=== PATIENT | female | born 1935 | race Caucasian/White ===

== ENCOUNTER → 2017-02-20 | Outpatient (CLI) | payer OTHER ==
--- NOTE | 2017-02-20 13:13 | DI ---
XR L-SPINE MIN 4 VW,02/20/2017 12:02 PM: Clinical History: Osteoarthritis of the spine with radiculopathy Previous Exam: None available. Findings: AP, lateral, flexion and extension views are obtained, and demonstrate diffuse osteopenia. Degenerative endplate changes are noted. There is a mild facet arthropathy. A nonobstructive bowel gas pattern is seen. A few vascular calcifications are seen. Impression: Diffuse degenerative changes of the lumbar spine without instability on flexion or extension.
== END ==
LOC: MRI 08:00
PROVIDERS: ATTEND Physician Assistant
DX: M47.26 Other spondylosis with radiculopathy, lumbar region (principal)
CPT/HCPCS: 72110

== ENCOUNTER → 2017-02-20 | Outpatient (CLI) | payer OTHER ==
--- NOTE | 2017-02-20 11:33 | DI ---
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 Previous Exam: None at this facility. Findings: Multiplanar MR images are obtained through the lumbar spine without contrast, and demonstrate anatomi c alignment without fractures. Vertebral body height is preserved. Intervertebral disc height is also preserved. The spinal cord descends normally with normal course, caliber and signal characteristics. The conus i s seen at the L2 level. There is facet arthropathy noted. There is disc desiccation and broad-based disc bulges throughout. Visualized portions of the kidneys are unremarkable. Individual intervertebral disc spaces: L1/2: No significant stenosis. L2/3: There is a broad-based disc bulge with some facet and ligamentum flavum hypertrophy contributin g to mild central canal stenosis and mild bilateral neural foraminal narrowing. L3/4: There is a broad-based disc bulge with some annular fissuring and facet and ligamentum flavum h ypertrophy contributing to moderate right lateral recess stenosis and mild left neuroforaminal narrow ing. L4/5: There is disc desiccation and a broad-based disc bulge with facet and ligamentum flavum hypertr ophy contributing to moderate central canal stenosis with severe bilateral neural foraminal narrowing . L5/S1: There is disc desiccation, annular fissuring and a broad-based disc bulge with facet and ligam entum flavum hypertrophy contributing to severe left and moderate right neuroforaminal narrowing. Impression: L2/3: There is a broad-based disc bulge with some facet and ligamentum flavum hypertrophy contributin g to mild central canal stenosis and mild bilateral neural foraminal narrowing. L3/4: There is a broad-based disc bulge with some annular fissuring and facet and ligamentum flavum h ypertrophy contributing to moderate right lateral recess stenosis and mild left neuroforaminal narrow ing. L4/5: There is disc desiccation and a broad-based disc bulge with facet and ligamentum flavum hypertr ophy contributing to moderate central canal stenosis with severe bilateral neural foraminal narrowing . L5/S1: There is disc desiccation, annular fissuring and a broad-based disc bulge with facet and ligam entum flavum hypertrophy contributing to severe left and moderate right neuroforaminal narrowing.
== END ==
LOC: MRI 08:00
PROVIDERS: ATTEND Physician Assistant
DX: M47.26 Other spondylosis with radiculopathy, lumbar region (principal); M47.816 Spondylosis without myelopathy or radiculopathy, lumbar region; M51.16 Intervertebral disc disorders with radiculopathy, lumbar region; M51.17 Intervertebral disc disorders with radiculopathy, lumbosacral region
CPT/HCPCS: 72148

== ENCOUNTER → 2017-03-14 | Outpatient (CLI) | payer OTHER ==
--- NOTE | 2017-03-14 10:05 | DI ---
RIGHT SHOULDER, 03/14/2017 9:18 AM: Clinical History: Acute right shoulder pain. Previous Exam: None at this facility. 3 views are submitted. There is no acute soft tissue, osseous, or joint abnormality. There are calcif ications in proximity to the greater tuberosity consistent with calcific tendinitis of the rotator cu ff. Mild arthrosis is present in the AC joint. There is osteoporosis. There is no mass in the apex or the remaining visualized portions of the right lung, but the right infrahilar region does appear pro minent. A routine PA and lateral chest x-ray is recommended for followup. Readin. Calcific tendinitis of the rotator cuff, probably in the supraspinatus tendon. 2. Osteoporosis. Arthrosis of the AC joint. 3. Prominent appearance of the right infrahilar region and a followup chest x-ray is recommended.
== END ==
LOC: MOB RAD 09:23
PROVIDERS: ATTEND Physician Assistant
DX: M25.511 Pain in right shoulder (principal); M75.41 Impingement syndrome of right shoulder; M75.31 Calcific tendinitis of right shoulder; M19.011 Primary osteoarthritis, right shoulder; M51.16 Intervertebral disc disorders with radiculopathy, lumbar region
CPT/HCPCS: 20610 ×2; 73030; 99213; G0463; J0702

== ENCOUNTER → 2017-06-14 | Outpatient (CLI) | payer OTHER | LOC: MMPC 10:00 | PROVIDERS: ATTEND Physician Assistant | DX: M75.41 Impingement syndrome of right shoulder (principal); M19.011 Primary osteoarthritis, right shoulder; M51.16 Intervertebral disc disorders with radiculopathy, lumbar region; M47.817 Spondylosis without myelopathy or radiculopathy, lumbosacral region | CPT/HCPCS: 20610 ×2; 99213; G0463; J0702 ==

== ENCOUNTER 2019-08-14 08:01 | Observation (INO) ==
[~2019-08-14 08:01] MED LIST: LIDOCAINE W/ SODIUM BICARB 0.5 ML SYR ONE; LIDOCAINE W/ SODIUM BICARB 0.5 ML SYR SUBD ONE; Lactated Ringers 1,000 ML PRIMARY IV ONE; Nasal Sanitizer POPSWAB ampule 3 AMP (Nozin) PREOP DOSE ENOS SCH; Sodium Chloride 0.9% 0 ML ONE; Sodium Chloride 0.9% 250 ML ONE; Vancomycin Inj 1gm vial ONE; Vancomycin-PHA to Dose IV PRN; ceFAZolin Inj 2gm (Premix) 2 GM/50 ML BAG IV ONE
[2019-08-14] MEDS ORDERED: MIDAZOLAM HCL 2 MG/2 ML VIAL ONE (10:23)
[2019-08-14] MEDS ORDERED: fentaNYL Inj 100 MCG/2 ML VIAL ONE ×2 (10:23→12:10)
[2019-08-14] MEDS ORDERED: ROCURONIUM 10 MG/1 ML - 5 ML VIAL IVP ONE (10:24)
[2019-08-14] MEDS ORDERED: PROPOFOL 10 MG/1 ML (200 MG/20 ML) VIAL IV ONE (10:25)
[2019-08-14] MEDS ORDERED: Prochlorperazine Edisylate Inj 10mg/2ml vial IVP PRN (10:31)
[2019-08-14] MEDS ORDERED: LIDOCAINE W/ SODIUM BICARB 0.5 ML SYR SUBD PRN ×2 (10:31→12:29)
[2019-08-14] MEDS ORDERED: ATROPINE SULFATE 0.4 MG/1 ML VIAL IVP PRN (10:31)
[2019-08-14] MEDS ORDERED: ONDANSETRON 4 MG/2 ML VIAL IVP PRN ×2 (10:31→17:21)
[2019-08-14] MEDS ORDERED: fentaNYL Inj 100 MCG/2 ML VIAL IVP PRN ×2 (10:31→12:29)
[2019-08-14] MEDS ORDERED: Lactated Ringers 1,000 ML PRIMARY IV SCH ×2 (10:45→12:30)
[2019-08-14] MEDS ORDERED: Sodium Chloride 0.9% vial 10 ML ONE (11:20)
[2019-08-14] MEDS ORDERED: BACITRACIN 50,000 UNIT VIAL IRRIG ONE (11:21)
[2019-08-14] MEDS ORDERED: THROMBIN (BOVINE) 20,000 UNIT KIT TOPICAL ONE (11:21)
[2019-08-14] MEDS ORDERED: Vancomycin Inj 1gm vial ONE (12:06)
[2019-08-14] MEDS ORDERED: HYDROmorphone 2 MG/1 ML ONE (13:45)
[2019-08-14] MEDS ORDERED: Lactated Ringers 1,000 ML PRIMARY IV ONE (13:46)
[2019-08-14] MEDS: HYDROmorphone 2 MG/1 ML IVP PRN ×2 (13:47→14:04)
[2019-08-14] MEDS ORDERED: ACETAMINOPHEN 325 MG TABLET PO PRN (17:21)
[2019-08-14] MEDS ORDERED: Zolpidem Tab 5 MG TAB PO PRN (17:21)
[2019-08-14] MEDS ORDERED: HYDRALAZINE 20 MG/1 ML IVP PRN (17:21)
[2019-08-14] MEDS ORDERED: traMADol 50 MG TABLET PO PRN (17:21)
[2019-08-14] MEDS ORDERED: MORPHINE SULFATE 2 MG/1 ML IVP PRN (17:21)
[2019-08-14] MEDS ORDERED: DOCUSATE 100 MG CAPSULE PO PRN (17:21)
[2019-08-14] MEDS ORDERED: Ondansetron ODT Tab 4 MG TAB PO PRN (17:21)
[2019-08-14] MEDS ORDERED: CALCIUM CARBONATE 500 MG (TUMS) CHEWABLE TABLET PO PRN (17:21)
[2019-08-14] MEDS ORDERED: LABETALOL 100 MG/20 ML (5 MG/1 ML) MDV IVP PRN (17:21)
[2019-08-14] MEDS: D5-1/2NS + 20mEq KCL 1,000 ML PRIMARY IV SCH (19:09)
[2019-08-14] MEDS: ceFAZolin Inj 1 GM in Sodium Chloride 0.9% 100 ML IV SCH (19:57)
[2019-08-14] MEDS: oxyCODONE-ACETAMINOPHEN 5-325 TAB PO PRN (23:27)
[2019-08-15] MEDS: ceFAZolin Inj 1 GM in Sodium Chloride 0.9% 100 ML IV SCH (03:24)
[2019-08-15] MEDS: D5-1/2NS + 20mEq KCL 1,000 ML PRIMARY IV SCH (03:35)
[2019-08-15] MEDS ORDERED: MORPHINE SULFATE 2 MG/1 ML IVP PRN (04:56)
[2019-08-15 06:45] VITALS: BP 123/83; RESP 16; TEMP 98.8
[2019-08-15] MEDS: oxyCODONE-ACETAMINOPHEN 5-325 TAB PO PRN ×2 (07:47→12:04)
[2019-08-15] MEDS ORDERED: LISINOPRIL 5 MG TABLET PO SCH (09:00)
[2019-08-15] MEDS ORDERED: AmLODIPine Tab 2.5 MG TABLET PO SCH (09:00)
[2019-08-15 09:58] VITALS: O2SAT 91
== END 2019-08-15 12:35 | disposition home or self-care (01) ==
LOC: MED/SURG 08:01 → OR 08:01 → OPS 08:02
PROVIDERS: ADMIT Neurological Surgery; ATTEND Neurological Surgery